=== PATIENT | male | born 1975 | race Caucasian/White ===

== ENCOUNTER 2018-01-31 06:38 | Emergency (ER) | payer SELFPAY ==
[~2018-01-31] VITALS: Ht 170.2 cm; Wt 84.1 kg
[2018-01-31] MEDS ORDERED: IBUPROFEN 800 MG TABLET PO ONE (08:00)
[2018-01-31 09:28] VITALS: BP 140/80
== END 2018-01-31 09:29 | disposition home or self-care (01) ==
LOC: EMS 06:38
DX: S80.811A Abrasion, right lower leg, initial encounter (principal); V23.9XXA Unspecified motorcycle rider injured in collision with car, pick-up truck or van in traffic accident, initial encounter; Y93.89 Activity, other specified; Y92.410 Unspecified street and highway as the place of occurrence of the external cause; Y99.8 Other external cause status
CPT/HCPCS: 99284